=== PATIENT | male | born 1970 | race Caucasian/White ===

== ENCOUNTER → 2016-03-27 | Outpatient (CLI) | payer OTHER ==
[~2016-03-27] VITALS: Ht 167.6 cm; Wt 101.6 kg
[~2016-03-27] MED LIST: ALKA-SELTZER P1 EA14 PO; NORCO 5-325 TA1 EACH PO; OMEPRAZOLE 20 M20 M1 PO; ZANAFLEX4 MG PO; ZESTORETIC 20-1 EAC3 PO
--- NOTE | ~2016-03-27 | HPC ---
[facility] [place] [address] [place] [address] PAIN MANAGEMENT CONSULTATION Name: TONY COLLADO Room #: [facility]ITAL[facility] [id number] Admission: 03/27/16 Attend Phys: Easton Perez DO Discharge: Date of : 70 Report #: [id number] THIS REPORT FOR: //name// CC: Yovanny Perez The patient is a very pleasant 45-year-old gentleman, last seen in the pain clinic 02/28/2016, given a single epidural injection at that time. He prior had been seen at [facility], given epidural injection in September with improvement of radicular symptoms. The patient returns to pain clinic today noting the injection on February 27, helped significantly, greater than 80% improvement of baseline pain, but he is still having some pain in the low back, right buttock, and posterior thigh, exacerbated with specific movements. He incidentally does have a little upper respiratory infection today, mostly sinus congestion for about 7 days. No fever or chills noted. PHYSICAL EXAMINATION: Shows a pleasant 45-year-old gentleman, BMI is approximately 30 kg/m2. Vital signs are otherwise stable. Rises from chair using armrest. Gait is tandem. Positive straight leg raise on the right with slight decreased right plantarflexion strength. Reflexes are symmetric. Diffuse tenderness across the low back. SI joint unremarkable. Piriformis is not involved. He does have a little minor cervical adenopathy, no posterior pharyngeal drainage is noted. No sinus tenderness and again he is afebrile. ASSESSMENT: Symptomatic lumbar radiculopathy and what appears to be a viral upper respiratory infection. RECOMMENDATION: Discussed therapeutic options with the patient today. Recommend nonsteroidal anti-inflammatory medications. We also talked about using Mucinex D [id number] for sinus congestion. Lastly, with recurrent radicular symptoms greater than 60% improvement (approximately 80% ) reduction of symptoms with last injection, but the symptoms are still interfering with function, we have elected to repeat epidural injection under fluoroscopy today and followup simply as needed. PROCEDURE: Lumbar epidural injection under fluoroscopy. PROCEDURE NOTE: After both written and informed consent to include risk of spinal cord damage, increased pain, weakness and dural puncture, the patient was taken to the fluoroscopy suite, placed in the prone position. After sterile prep and drape, a skin wheal with lidocaine was raised. A 22-gauge epidural Tuohy needle was inserted in the midline at L4-L5 with good loss to resistance. Negative aspiration for cerebrospinal fluid or blood was noted. Then 1 mL of Omnipaque under biplanar fluoroscopy showed good spread within the epidural space. This was followed with 80 mg of triamcinolone plus 1 mL of 1.5% [address] [address] PAIN MANAGEMENT CONSULTATION Name: TONY COLLADO Room #: REG [facility] Metz#: [id number] Admission: 03/27/16 Attend Phys: Easton Perez DO Discharge: Date of : 70 Report #: [id number] preservative-free Xylocaine, 0.5 mL Xylocaine was then injected to flush the needle; it was removed. The patient was monitored for an appropriate period of time and discharged in good and stable condition. <ELECTRONICALLY SIGNED> By: Easton Perez DO 03/28/16 0904 [id number] Easton Perez DO /nt
[2016-03-27 08:24] VITALS: BP 130/90
== END | disposition home or self-care (01) ==
LOC: PAIN 07:05
DX: M54.16 Radiculopathy, lumbar region (principal)